=== PATIENT | male | born 1940 | race Caucasian/White ===

== ENCOUNTER 2017-09-07 13:32 | Emergency (ER) | payer OTHER, SELFPAY ==
[~2017-09-07] VITALS: Ht 172.7 cm; Wt 74.8 kg
[2017-09-07] MEDS ORDERED: GLUCAGON 1 MG IVPush ONE (15:19)
[2017-09-07] MEDS ORDERED: SODIUM CHLORIDE 0.9% 1,000ML IV ONE (15:30)
[2017-09-07] MEDS ORDERED: SODIUM CHLORIDE FLUSH 10ML SYR IVF ONE (15:30)
[2017-09-07] MEDS ORDERED: GLUCAGON 1 MG ONE ×2 (15:49→16:37)
[2017-09-07] MEDS ORDERED: PROPOFOL 10 MG/ML, 20ML IVPush ONE (18:30)
[2017-09-07 18:40] VITALS: BP 142/91
== END 2017-09-07 19:47 | disposition home or self-care (01) ==
LOC: ED 19:09
DX: T18.128A Food in esophagus causing other injury, initial encounter (principal); Y93.89 Activity, other specified; Y92.89 Other specified places as the place of occurrence of the external cause; Y99.8 Other external cause status; I10 Essential (primary) hypertension; F17.200 Nicotine dependence, unspecified, uncomplicated; X58.XXXA Exposure to other specified factors, initial encounter; Z95.0 Presence of cardiac pacemaker
CPT/HCPCS: 96374; 99152; 99153; 99285; J1610; J2704

== ENCOUNTER 2019-01-15 12:55 | Outpatient (CLI) | payer MEDICARE, OTHER | END 2019-01-15 23:59 | disposition home or self-care (01) | LOC: CFH 12:55 | PROVIDERS: ATTEND Physician Assistant | DX: R31.0 Gross hematuria (principal) | CPT/HCPCS: 74178; 82565; Q9967 ==

== ENCOUNTER 2020-08-05 10:28 | Inpatient (IN) | payer MEDICARE ==
[~2020-08-05] VITALS: Ht 185.4 cm; Wt 71.1 kg
[~2020-08-05 10:28] MED LIST: ABAC1TAB14 PO; AMLO-210 PO; ASPI-1026 PO; ATOR40TA78 PO; CLOP75TA PO; ETOMIDATE 20 MG/10 ML ONE; EZET10TA48 PO; LISI10TA19 PO; OMEP20CA20 PO; PROPOFOL 10 MG/ML, 100ML IV ONE; TAMS-11 PO; VECURONIUM 10 MG ONE; ZONI50CA10 PO
--- NOTE | 2020-08-05 10:30 | NUR ---
pt BIB ambulance from home where he was found down by family approximately 30 minutes RN ER. per report from family on scene, pt was last seen at normal baseline 10 minutes prior to eposiode. per report, pt was D/C to home yesterday after being hospitalized for a CVA. unk duration of hospitalization or tx. per report, pt had a decreased LOC on scene and a GCS of 3. when EMS attempted intubation, pt made a "choking sound" OPA was plaed and BVM initiated upon admit, pt has BVM in process. no response to painful stimuli. no family at bedside FSBS RN ER 116 pt has no obvious injury, but does have bruises at various stages of healing to anterior abdomen. pt is barrel chested and pale.
[2020-08-05] MEDS ORDERED: NALOXONE 1 MG/ML, 2ML ONE (10:33)
--- NOTE | 2020-08-05 10:50 | NUR ---
pt is hypotensive. Dr Reed at bedside for central line placement
--- NOTE | 2020-08-05 10:50 | NUR ---
Dr. Reed and med student at bedside for central line placement
[2020-08-05] MEDS ORDERED: SODIUM CHLORIDE FLUSH 10ML SYR IVF ONE (11:00)
--- NOTE | 2020-08-05 11:05 | NUR ---
CXR at bedside. lab at bedside to draw
--- NOTE | 2020-08-05 11:05 | NUR ---
CR at bedside. lab at bedside to draw Addendum: 08/05/20 at 1128 by ALBERTO Amendment undone in EDM - 08/05/20 at 1128 by ALBERTO CXR at bedside. lab at bedside to draw
[2020-08-05 11:10] LABS: BASOPHILS % (AUTO) 1 % (0-1); EOSINOPHILS % (AUTO) 1 % (1-7); LYMPHOCYTES % (AUTO) 24 % (22-44); MEAN CORPUSCULAR HEMOGLOBIN 33.5 pg (27.5-34.5); MEAN CORPUSCULAR HGB CONC 33.3 g/dL (33.2-36.2); MONOCYTES % (AUTO) 10 % (2-9); NEUTROPHILS % (AUTO) 64 % (42-75); PLATELET COUNT 172 x10^3/uL (130-400); RED BLOOD COUNT 4.62 x10^6/uL (4.38-5.82); RED CELL DISTRIBUTION WIDTH 14.3 % (9.4-14.8)
--- NOTE | 2020-08-05 11:15 | NUR ---
pt is intubated. lung sounds slightly diminished and CTA. pt is 100% paced on potash flaker IV bolus infusing
[2020-08-05 11:16] LABS: MD NO
[2020-08-05 11:22] LABS: ALBUMIN 3.5 g/dL (3.4-5.0); ANION GAP 7 mmol/L (5-15); CALCIUM 9.2 mg/dL (8.5-10.1); CHLORIDE 104 mmol/L (98-107); CREATININE 2.21 mg/dL (0.7-1.3)
[2020-08-05 11:23] LABS: INTERNATIONAL NORMALIZED RATIO 1.28 (0.93-1.1); PROTHROMBIN TIME 13.6 Seconds (9.6-11.5)
--- NOTE | 2020-08-05 11:25 | NUR ---
1030: IV# 2 started 1034: 0.5mg narcan IVP 1035: 20mg etomidate IVP 1036: 8mg vecuronium IVP 1037: 8.0 ET tube placed, 24 cm @ lip, +color change vent settings: A/C: 18 tv: 500 O2: 100% PEEP: 5
[2020-08-05 11:26] LABS: TROPONIN I < 0.015 ng/mL (0.000-0.045)
[2020-08-05] MEDS ORDERED: SODIUM CHLORIDE 0.9% 1,000ML IVBOLUS ONE ×2 (11:30)
[2020-08-05] MEDS ORDERED: ETOMIDATE 40 MG/20 ML IVPush ONE (11:30)
[2020-08-05] MEDS ORDERED: PROPOFOL 100 ML IV PRN (11:30)
[2020-08-05] MEDS ORDERED: VECURONIUM 10 MG IVPush ONE (11:30)
--- NOTE | 2020-08-05 11:36 | NUR ---
CXR results are back. OK to use central line per Dr. Reed. ET tube placement good
--- NOTE | 2020-08-05 11:55 | NUR ---
RT at bedside and electrophysiology tech at bedside, pt to got ot CT bedside report to Bill RN
[2020-08-05] MEDS ORDERED: DOCUSATE 100 MG CAPSULE PO PRN (12:30)
[2020-08-05] MEDS ORDERED: ACETAMINOPHEN 325 MG TABLET PO PRN (12:30)
[2020-08-05] MEDS ORDERED: morphine SULFATE 10 MG/ML, 1ML IVPush PRN (12:30)
[2020-08-05] MEDS ORDERED: ONDANSETRON 2MG/ML, 2ML IVPush PRN (12:30)
[2020-08-05] MEDS: LACTATED RINGERS 1,000 ML IV SCH (12:38)
[2020-08-05 12:42] LABS: ALBUMIN 3.1 g/dL (3.4-5.0); BILIRUBIN, DIRECT 0.2 mg/dL (0.1-0.2)
[2020-08-05 12:44] LABS: MICROSCOPIC AUTO
[2020-08-05 12:49] LABS: TROPONIN I < 0.015 ng/mL (0.000-0.045)
[2020-08-05 12:53] LABS: AMPHETAMINE SCREEN, URINE Negative (Negative); BARBITURATE SCREEN, URINE Negative (Negative); BENZODIAZEPINE SCREEN, URINE Negative (Negative); CANNABINOID SCREEN, URINE Negative (Negative); COCAINE SCREEN, URINE Negative (Negative); METHADONE SCREEN, URINE Negative (Negative); OPIATE SCREEN, URINE Positive (Negative)
[2020-08-05 12:55] VITALS: BP 119/68
[2020-08-05 13:11] LABS: BILIRUBIN,INDIRECT 0.7 mg/dL (0.0-2.0); BILIRUBIN,TOTAL 0.9 mg/dL (0.2-1.0); TOTAL PROTEIN 6.4 g/dL (6.4-8.2)
--- NOTE | 2020-08-05 13:29 | NUR ---
[facility] TELEPHONE HAND-OFF REPORT TO RNs ANUSHKA AND ATUL HOLLOWAY.
[2020-08-05] MEDS ORDERED: CEFTRIAXONE PMX 1GM/50ML 50 ML IV SCH (15:00)
[2020-08-05 18:59] LABS: TROPONIN I 0.017 ng/mL (0.000-0.045)
[2020-08-05] MEDS: ATORVASTATIN 40 MG TABLET PO SCH (21:00)
[2020-08-05] MEDS: ZONISAMIDE 50 MG CAPSULE PO SCH (21:00)
[2020-08-06] MEDS: LACTATED RINGERS 1,000 ML IV SCH ×2 (01:50→18:08)
[2020-08-06 05:00] LABS: BASOPHILS % (AUTO) 1 % (0-1); EOSINOPHILS % (AUTO) 0 % (1-7); LYMPHOCYTES % (AUTO) 14 % (22-44); MEAN CORPUSCULAR HEMOGLOBIN 33.7 pg (27.5-34.5); MEAN CORPUSCULAR HGB CONC 33.7 g/dL (33.2-36.2); MEAN PLATELET VOLUME 7.9 fL (7.4-10.4); MONOCYTES % (AUTO) 10 % (2-9); NEUTROPHILS % (AUTO) 75 % (42-75); PLATELET COUNT 151 x10^3/uL (130-400); RED BLOOD COUNT 4.56 x10^6/uL (4.38-5.82)
[2020-08-06 05:01] LABS: MD NO
[2020-08-06 05:09] LABS: ANION GAP 6 mmol/L (5-15); CALCIUM 9.3 mg/dL (8.5-10.1); CHLORIDE 108 mmol/L (98-107); CREATININE 1.34 mg/dL (0.7-1.3)
[2020-08-06] MEDS: PANTOPRAZOLE 40 MG IV IVPush SCH (07:42)
[2020-08-06] MEDS: LAMIVUDI PO SCH (08:55)
[2020-08-06] MEDS: ABACAVIR PO SCH (08:55)
[2020-08-06] MEDS: DOLUTEGRAVIR PO SCH (08:55)
[2020-08-06] MEDS: hydrALAzine 20 MG/ML, 1ML IVPush PRN (15:03)
[2020-08-06] MEDS: ATORVASTATIN 40 MG TABLET PO SCH (19:16)
[2020-08-06] MEDS: ZONISAMIDE 50 MG CAPSULE PO SCH (19:16)
[2020-08-07] MEDS: hydrALAzine 20 MG/ML, 1ML IVPush PRN (03:30)
[2020-08-07] MEDS: LACTATED RINGERS 1,000 ML IV SCH ×2 (05:36→18:28)
[2020-08-07] MEDS ORDERED: PROPOFOL 100 ML IV ONE (08:44)
[2020-08-07] MEDS: PANTOPRAZOLE 40 MG IV IVPush SCH (08:45)
[2020-08-07] MEDS: ABACAVIR PO SCH (09:00)
[2020-08-07] MEDS: DOLUTEGRAVIR PO SCH (09:00)
[2020-08-07] MEDS: LAMIVUDI PO SCH (09:00)
[2020-08-07] MEDS: MIDAZOLAM HCL 50 MG in SODIUM CHLORIDE 0.9% 40 ML IV PRN (11:33)
[2020-08-07] MEDS: PROPOFOL 100 ML IV PRN (18:27)
[2020-08-07] MEDS: ATORVASTATIN 40 MG TABLET PO SCH (20:59)
[2020-08-07] MEDS: ZONISAMIDE 50 MG CAPSULE PO SCH (20:59)
[2020-08-08] MEDS: MIDAZOLAM HCL 50 MG in SODIUM CHLORIDE 0.9% 40 ML IV PRN (02:18)
[2020-08-08] MEDS: PANTOPRAZOLE 40 MG IV IVPush SCH (07:43)
[2020-08-08] MEDS: PROPOFOL 100 ML IV PRN ×2 (07:45→17:22)
[2020-08-08] MEDS: LACTATED RINGERS 1,000 ML IV SCH ×2 (07:46→20:39)
[2020-08-08] MEDS: ABACAVIR PO SCH (07:46)
[2020-08-08] MEDS: DOLUTEGRAVIR PO SCH (07:46)
[2020-08-08] MEDS: LAMIVUDI PO SCH (07:46)
[2020-08-08] MEDS: ATORVASTATIN 40 MG TABLET PO SCH (19:19)
[2020-08-08] MEDS: ZONISAMIDE 50 MG CAPSULE PO SCH (19:19)
[2020-08-09] MEDS: PROPOFOL 100 ML IV PRN ×2 (05:30→16:11)
[2020-08-09] MEDS: ABACAVIR PO SCH (08:06)
[2020-08-09] MEDS: LAMIVUDI PO SCH (08:06)
[2020-08-09] MEDS: DOLUTEGRAVIR PO SCH (08:06)
[2020-08-09] MEDS: PANTOPRAZOLE 40 MG IV IVPush SCH (08:16)
[2020-08-09] MEDS: LACTATED RINGERS 1,000 ML IV SCH (10:16)
[2020-08-09] MEDS: ATORVASTATIN 40 MG TABLET PO SCH ×2 (21:00→21:05)
[2020-08-09] MEDS: ZONISAMIDE 50 MG CAPSULE PO SCH ×2 (21:00→21:05)
[2020-08-10] MEDS: LACTATED RINGERS 1,000 ML IV SCH ×2 (00:27→15:01)
[2020-08-10] MEDS: PROPOFOL 100 ML IV PRN ×3 (04:13→23:06)
[2020-08-10] MEDS: PANTOPRAZOLE 40 MG IV IVPush SCH (07:47)
[2020-08-10] MEDS: DOLUTEGRAVIR PO SCH (07:48)
[2020-08-10] MEDS: LAMIVUDI PO SCH (07:48)
[2020-08-10] MEDS: ABACAVIR PO SCH (07:48)
[2020-08-10] MEDS: hydrALAzine 20 MG/ML, 1ML IVPush PRN (18:06)
[2020-08-10] MEDS: ATORVASTATIN 40 MG TABLET PO SCH (21:00)
[2020-08-10] MEDS: ZONISAMIDE 50 MG CAPSULE PO SCH (21:00)
[2020-08-11] MEDS: LACTATED RINGERS 1,000 ML IV SCH (05:04)
[2020-08-11] MEDS: PROPOFOL 100 ML IV PRN ×2 (05:04→11:39)
[2020-08-11] MEDS: hydrALAzine 20 MG/ML, 1ML IVPush PRN (05:06)
[2020-08-11] MEDS: LAMIVUDI PO SCH (07:54)
[2020-08-11] MEDS: DOLUTEGRAVIR PO SCH (07:54)
[2020-08-11] MEDS: ABACAVIR PO SCH (07:54)
[2020-08-11] MEDS: PANTOPRAZOLE 40 MG IV IVPush SCH (08:07)
[2020-08-11] MEDS ORDERED: MORPHINE 30MG/30ML PCA.SYR IV PRN (15:30)
[2020-08-11] MEDS ORDERED: MORPHINE SULFATE 4 MG/ML, 1ML IV ONE (15:30)
[2020-08-11] MEDS ORDERED: LORazepam 2 MG/ML, 1ML IVPush PRN (15:30)
[2020-08-11] MEDS ORDERED: LORazepam 2 MG/ML, 1ML IV ONE (15:30)
[2020-08-11] MEDS ORDERED: ONDANSETRON 2MG/ML, 2ML IVPush PRN (15:30)
== END 2020-08-11 16:58 | disposition expired | DRG 207 ==
LOC: ED 12:18 → CCU 12:19 → ED 12:19 → CCU 13:55
PROVIDERS: ADMIT Hospitalist; ATTEND Internal Medicine
PROC: 5A1955Z Respiratory Ventilation, Greater than 96 Consecutive Hours (ICD-10-PCS; principal; 2020-08-05)
PROC: 0BH18EZ Insertion of Endotracheal Airway into Trachea, Via Natural or Artificial Opening Endoscopic (ICD-10-PCS; 2020-08-05)
PROC: 02HV33Z Insertion of Infusion Device into Superior Vena Cava, Percutaneous Approach (ICD-10-PCS; 2020-08-05)
PROC: 0T9B70Z Drainage of Bladder with Drainage Device, Via Natural or Artificial Opening (ICD-10-PCS; 2020-08-05)
DX: J96.00 Acute respiratory failure, unspecified whether with hypoxia or hypercapnia (principal); N17.0 Acute kidney failure with tubular necrosis; I50.32 Chronic diastolic (congestive) heart failure; Z99.11 Dependence on respirator [ventilator] status; I67.89 Other cerebrovascular disease; D75.89 Other specified diseases of blood and blood-forming organs; Z66 Do not resuscitate; Z51.5 Encounter for palliative care; K44.9 Diaphragmatic hernia without obstruction or gangrene; F17.210 Nicotine dependence, cigarettes, uncomplicated; E78.5 Hyperlipidemia, unspecified; I11.0 Hypertensive heart disease with heart failure; I27.20 Pulmonary hypertension, unspecified; R00.1 Bradycardia, unspecified; G40.909 Epilepsy, unspecified, not intractable, without status epilepticus; Z86.73 Personal history of transient ischemic attack (TIA), and cerebral infarction without residual deficits
CPT/HCPCS: 36415; 36600; 70450; 70553; 71045; 74018; 80048; 80076; 80307; 81001; 82040; 82140; 82607; 82803; 83605; 83735; 84100; 84145; 84443; 84478; 84484; 85025; 85610; 85730; 86361; 87040; 87070; 87081; 87086; 87205; 93005; 94002; 94003; 95819; 96361; 96374; 96375; 99291; G0378; J0696; J2250; J2270; J2704; C9113; J0360; J2060; J7030; J7120